=== PATIENT | male | born 1945 | race Caucasian/White ===

== ENCOUNTER 2018-01-12 14:33 | Inpatient (IN) | payer OTHER, MEDICARE ==
[~2018-01-12] VITALS: Ht 182.8 cm; Wt 113.7 kg
--- NOTE | ~2018-01-12 | CON ---
[place], [place] REPORT OF CONSULTATION NAME: TAMMI SABILLON UNIT #: [id number] ROOM: 507 DOCTOR: MARIANA ROSE ED.D) BIRTHDATE: [birth year] DOS: 01/15/2018 HISTORY OF PRESENT ILLNESS: The patient is a 72-year-old male referred by the hospitalist for competency evaluation. At the present time, he is on the fifth floor at [facility]. He states he is and has no children. He does have 1 sister living and 1 brother who last month. He does also have several nieces and nephews. He served in the [employer] for 20-1/2 years and retired. [facility] [place] [facility]. PAST MEDICAL HISTORY: Pertinent for herniated disk, hypothyroidism, diabetes mellitus type 2, hypertension and depression. His medical history also includes cardiomegaly, congestive heart failure, acute renal failure, and chronic back pain. ALLERGIES: HE IS ALLERGIC TO FLEXERIL, METFORMIN, MORPHINE AND OXYCODONE. SOCIAL HISTORY: He is 100 percent service connected from the service due to his back problems. He states that he rarely drinks alcoholic beverages and smokes one-half pack of cigarettes per day. PHYSICAL EXAMINATION: He was awake, alert and oriented in all 3 spheres. He denied any suicidal ideation or plan. His short and his snf memory appear to be intact. His insight and judgment are fair. He states he does have a friend down the road who does help him with grocery shopping and other activities of daily living, but basically resides by himself and takes care of himself. He clearly is competent to make informed healthcare decisions. DIAGNOSIS: Pervasive depressive disorder. RECOMMENDATIONS: The patient is competent to make informed healthcare decisions. Thank you very much for this consult. MARIANA ROSE ED.D CM:CONSTR:REPORT OF CONSULTATION 1029 01/16/18 0432 interface
[2018-01-12 14:43] VITALS: BP 132/70
[2018-01-12] MEDS ORDERED: PROAIR HFA8.5 GM INH (15:02)
[2018-01-12 15:30] VITALS: BP 118/64
[2018-01-12 15:58] LABS: ACT PARTIAL THROMBO TIME 30.9 SECONDS (20.8-31.5); INTERNATIONAL NORM RATIO 1.1 (2.0-3.5)
[2018-01-12 16:08] LABS: ALBUMIN 3.6 gm/dl (3.1-4.5); ALKALINE PHOSPHATASE 62 U/L (45-117); BUN 13 mg/dl (7-24); CHLORIDE 102 mmol/L (98-107); CREATININE 1.33 mg/dL (0.70-1.30); LIPASE 145 U/L (73-393); POTASSIUM 3.5 mmol/L (3.5-5.1); SGOT/AST 51 IU/L (3-35); SGPT/ALT 42 U/L (12-78); SODIUM 136 mmol/L (136-145); TOTAL PROTEIN 7.3 gm/dL (6.4-8.2)
[2018-01-12 16:10] LABS: TROPONIN I 0.015 ng/ml (<0.045)
[2018-01-12 16:24] LABS: BILIRUBIN NEGATIVE (NEGATIVE); BLOOD NEGATIVE (NEGATIVE); CLARITY CLEAR (CLEAR); COLOR YELLOW (YELLOW); GLUCOSE NEGATIVE (NEGATIVE); KETONE NEGATIVE (NEGATIVE); LEUKO ESTERASE NEGATIVE (NEGATIVE); NITRITE NEGATIVE (NEGATIVE); SPECIFIC GRAVITY 1.025 (1.005-1.030); UROBILINOGEN 0.2 E.U./dl (0.2-1.0)
[2018-01-12 16:28] VITALS: BP 118/86
[2018-01-12 16:36] LABS: BASO # 0.1 10*3/uL (0.0-0.1); BASO % 1.1 % (0.0-1.0); EOS # 0.2 10*3/uL (0.0-0.4); EOS % 2.3 % (1.0-4.0); HEMATOCRIT 41.4 % (42.0-52.0); HEMOGLOBIN 14.4 g/dl (14.0-18.0); LYMPH # 2.2 10*3/uL (1.3-4.4); LYMPH % 31.1 % (27.0-41.0); MEAN CELL VOLUME 97.2 fl (80.0-94.0); MEAN CORPUSCULAR HGB 33.8 pg (27.0-31.0); MEAN CORPUSCULAR HGB CONC 34.8 g/dl (33.0-37.0); MEAN PLATELET VOLUME 11.1 fl (9.6-12.3); MONO # 0.4 10*3/uL (0.1-1.0); MONO % 5.7 % (3.0-9.0); NEUT # 4.2 10*3/uL (2.3-7.9); NEUT % 59.7 % (47.0-73.0); PLATELET COUNT AUTOMATED 164 10*3/uL (130-400); RED BLOOD COUNT 4.26 10*6/uL (4.50-5.90); RED CELL DISTRI WIDTH 14.2 % (0-14.5)
[2018-01-12 16:48] LABS: RBC 0-2 rbc/hpf (0-2)
[2018-01-12 17:24] VITALS: BP 106/73
[2018-01-12 18:25] VITALS: BP 131/78
[2018-01-12 20:06] VITALS: BP 107/66; BP 108/66
[2018-01-13] VITALS: BP 112/72
[2018-01-13 06:36] LABS: BASO # 0.1 10*3/uL (0.0-0.1); BASO % 1.4 % (0.0-1.0); EOS # 0.2 10*3/uL (0.0-0.4); HEMATOCRIT 41.4 % (42.0-52.0); HEMOGLOBIN 13.7 g/dl (14.0-18.0); LYMPH # 2.5 10*3/uL (1.3-4.4); LYMPH % 33.6 % (27.0-41.0); MEAN CORPUSCULAR HGB 32.8 pg (27.0-31.0); MEAN CORPUSCULAR HGB CONC 33.1 g/dl (33.0-37.0); MEAN PLATELET VOLUME 11.6 fl (9.6-12.3); MONO # 0.4 10*3/uL (0.1-1.0); MONO % 5.9 % (3.0-9.0); NEUT # 4.1 10*3/uL (2.3-7.9); NEUT % 55.6 % (47.0-73.0); PLATELET COUNT AUTOMATED 168 10*3/uL (130-400); RED BLOOD COUNT 4.18 10*6/uL (4.50-5.90); RED CELL DISTRI WIDTH 14.5 % (0-14.5); WHITE BLOOD COUNT 7.4 10*3/uL (4.8-10.8)
[2018-01-13 06:56] LABS: POTASSIUM 3.6 mmol/L (3.5-5.1)
[2018-01-13 07:00] LABS: ACT PARTIAL THROMBO TIME 30.7 SECONDS (20.8-31.5); INTERNATIONAL NORM RATIO 1.1 (2.0-3.5)
[2018-01-13 07:07] LABS: ALBUMIN 3.5 gm/dl (3.1-4.5); CREATININE 1.58 mg/dL (0.70-1.30); FREE T4 0.12 ng/dl (0.76-1.46); PHOSPHOROUS 3.4 mg/dL (2.5-4.9); THYROID STIM HORMONE (HS) 89.4 uIU/ml (0.358-4.75)
[2018-01-13 07:47] LABS: VITAMIN D, 25-HYDROXY 22.3 ng/mL (30-100)
[2018-01-13 08:00] VITALS: BP 119/79
[2018-01-13 12:00] VITALS: BP 137/82
[2018-01-13] MEDS ORDERED: SYNTHROID25 MCG PO (15:45)
[2018-01-13] MEDS ORDERED: ONCE DAILY1 EACH PO (15:50)
[2018-01-13] MEDS ORDERED: ITCHY EYE5 ML OP (15:51)
[2018-01-13] MEDS ORDERED: ALLERGY RELIEF25 MG PO (15:53)
[2018-01-13] MEDS ORDERED: PROSTATE SR SO1 EACH PO (15:53)
[2018-01-13] MEDS ORDERED: OCUVEL CAPSULE1 EACH PO (15:56)
[2018-01-13 16:00] VITALS: BP 127/79
[2018-01-13 20:00] VITALS: BP 129/88
[2018-01-14] VITALS: BP 127/79
[2018-01-14 06:50] LABS: BASO # 0.1 10*3/uL (0.0-0.1); EOS # 0.2 10*3/uL (0.0-0.4); EOS % 2.9 % (1.0-4.0); HEMATOCRIT 41.6 % (42.0-52.0); HEMOGLOBIN 13.7 g/dl (14.0-18.0); LYMPH # 2.2 10*3/uL (1.3-4.4); MEAN CELL VOLUME 100.5 fl (80.0-94.0); MEAN CORPUSCULAR HGB 33.1 pg (27.0-31.0); MEAN CORPUSCULAR HGB CONC 32.9 g/dl (33.0-37.0); MEAN PLATELET VOLUME 11.2 fl (9.6-12.3); MONO # 0.5 10*3/uL (0.1-1.0); MONO % 6.1 % (3.0-9.0); NEUT # 5.2 10*3/uL (2.3-7.9); NEUT % 62.6 % (47.0-73.0); PLATELET COUNT AUTOMATED 171 10*3/uL (130-400); RED BLOOD COUNT 4.14 10*6/uL (4.50-5.90); RED CELL DISTRI WIDTH 14.6 % (0-14.5); WHITE BLOOD COUNT 8.2 10*3/uL (4.8-10.8)
[2018-01-14 07:11] LABS: ALBUMIN 3.5 gm/dl (3.1-4.5); CREATININE 1.67 mg/dL (0.70-1.30); FREE T4 0.21 ng/dl (0.76-1.46); POTASSIUM 3.7 mmol/L (3.5-5.1); TOTAL PROTEIN 7.1 gm/dL (6.4-8.2)
[2018-01-14 07:20] LABS: THYROID STIM HORMONE (HS) 98.3 uIU/ml (0.358-4.75)
[2018-01-14 08:00] VITALS: BP 104/68
[2018-01-14 12:00] VITALS: BP 112/70
[2018-01-14 16:00] VITALS: BP 110/82; BP 139/78
[2018-01-14 20:19] VITALS: BP 92/66
[2018-01-15 00:33] VITALS: BP 103/69
[2018-01-15 04:10] VITALS: BP 110/68
[2018-01-15 05:55] LABS: ALBUMIN 3.5 gm/dl (3.1-4.5); CREATININE 1.65 mg/dL (0.70-1.30); PHOSPHOROUS 3.6 mg/dL (2.5-4.9); POTASSIUM 3.9 mmol/L (3.5-5.1); TOTAL PROTEIN 7.4 gm/dL (6.4-8.2)
[2018-01-15 05:56] LABS: BASO # 0.1 10*3/uL (0.0-0.1); EOS # 0.2 10*3/uL (0.0-0.4); EOS % 2.6 % (1.0-4.0); HEMATOCRIT 41.5 % (42.0-52.0); HEMOGLOBIN 13.9 g/dl (14.0-18.0); LYMPH % 25.3 % (27.0-41.0); MEAN CELL VOLUME 98.1 fl (80.0-94.0); MEAN CORPUSCULAR HGB 32.9 pg (27.0-31.0); MEAN CORPUSCULAR HGB CONC 33.5 g/dl (33.0-37.0); MEAN PLATELET VOLUME 11.6 fl (9.6-12.3); MONO # 0.5 10*3/uL (0.1-1.0); MONO % 6.9 % (3.0-9.0); NEUT % 63.9 % (47.0-73.0); PLATELET COUNT AUTOMATED 165 10*3/uL (130-400); RED BLOOD COUNT 4.23 10*6/uL (4.50-5.90); RED CELL DISTRI WIDTH 14.3 % (0-14.5); WHITE BLOOD COUNT 7.8 10*3/uL (4.8-10.8)
[2018-01-15 08:00] VITALS: BP 126/65
[2018-01-15 12:00] VITALS: BP 121/89
[2018-01-15 16:00] VITALS: BP 117/88
[2018-01-15 20:00] VITALS: BP 126/85
[2018-01-16] VITALS: BP 110/62
[2018-01-16 05:50] LABS: BASO # 0.1 10*3/uL (0.0-0.1); BASO % 1.3 % (0.0-1.0); EOS # 0.2 10*3/uL (0.0-0.4); EOS % 3.1 % (1.0-4.0); HEMATOCRIT 42.1 % (42.0-52.0); HEMOGLOBIN 13.9 g/dl (14.0-18.0); LYMPH # 1.9 10*3/uL (1.3-4.4); MEAN CELL VOLUME 100.7 fl (80.0-94.0); MEAN CORPUSCULAR HGB 33.3 pg (27.0-31.0); MEAN PLATELET VOLUME 11.5 fl (9.6-12.3); MONO # 0.5 10*3/uL (0.1-1.0); MONO % 7.4 % (3.0-9.0); NEUT # 4.1 10*3/uL (2.3-7.9); NEUT % 59.8 % (47.0-73.0); PLATELET COUNT AUTOMATED 157 10*3/uL (130-400); RED BLOOD COUNT 4.18 10*6/uL (4.50-5.90); RED CELL DISTRI WIDTH 14.1 % (0-14.5); WHITE BLOOD COUNT 6.9 10*3/uL (4.8-10.8)
[2018-01-16 06:03] LABS: CREATININE 1.76 mg/dL (0.70-1.30); POTASSIUM 3.5 mmol/L (3.5-5.1)
[2018-01-16 08:00] VITALS: BP 94/66
[2018-01-16 16:44] VITALS: BP 139/78
[2018-01-16 20:09] VITALS: BP 128/85
[2018-01-17 00:04] VITALS: BP 105/61
[2018-01-17 07:21] LABS: BASO # 0.1 10*3/uL (0.0-0.1); EOS # 0.2 10*3/uL (0.0-0.4); HEMATOCRIT 38.7 % (42.0-52.0); HEMOGLOBIN 12.8 g/dl (14.0-18.0); LYMPH # 1.7 10*3/uL (1.3-4.4); LYMPH % 25.1 % (27.0-41.0); MEAN CORPUSCULAR HGB 33.1 pg (27.0-31.0); MEAN CORPUSCULAR HGB CONC 33.1 g/dl (33.0-37.0); MEAN PLATELET VOLUME 11.2 fl (9.6-12.3); MONO # 0.6 10*3/uL (0.1-1.0); MONO % 8.2 % (3.0-9.0); NEUT # 4.2 10*3/uL (2.3-7.9); NEUT % 62.3 % (47.0-73.0); PLATELET COUNT AUTOMATED 146 10*3/uL (130-400); RED BLOOD COUNT 3.87 10*6/uL (4.50-5.90); RED CELL DISTRI WIDTH 14.1 % (0-14.5); WHITE BLOOD COUNT 6.7 10*3/uL (4.8-10.8)
[2018-01-17 07:37] LABS: CREATININE 1.57 mg/dL (0.70-1.30); POTASSIUM 3.9 mmol/L (3.5-5.1)
[2018-01-17 08:00] VITALS: BP 125/81
[2018-01-17 16:00] VITALS: BP 108/52
[2018-01-17 20:00] VITALS: BP 107/61
[2018-01-18] VITALS: BP 102/61
[2018-01-18 04:00] VITALS: BP 115/63
[2018-01-18 08:00] VITALS: BP 124/91
[2018-01-18 16:00] VITALS: BP 132/72
[2018-01-18 20:03] VITALS: BP 101/66
[2018-01-19] VITALS: BP 125/79
[2018-01-19 06:56] LABS: BASO # 0.1 10*3/uL (0.0-0.1); BASO % 1.2 % (0.0-1.0); EOS # 0.2 10*3/uL (0.0-0.4); EOS % 3.4 % (1.0-4.0); HEMATOCRIT 40.3 % (42.0-52.0); HEMOGLOBIN 13.4 g/dl (14.0-18.0); LYMPH # 1.9 10*3/uL (1.3-4.4); LYMPH % 28.2 % (27.0-41.0); MEAN CELL VOLUME 98.5 fl (80.0-94.0); MEAN CORPUSCULAR HGB 32.8 pg (27.0-31.0); MEAN CORPUSCULAR HGB CONC 33.3 g/dl (33.0-37.0); MEAN PLATELET VOLUME 11.2 fl (9.6-12.3); MONO # 0.5 10*3/uL (0.1-1.0); MONO % 6.9 % (3.0-9.0); PLATELET COUNT AUTOMATED 150 10*3/uL (130-400); RED BLOOD COUNT 4.09 10*6/uL (4.50-5.90); WHITE BLOOD COUNT 6.7 10*3/uL (4.8-10.8)
[2018-01-19 07:06] LABS: ALBUMIN 3.5 gm/dl (3.1-4.5); ALKALINE PHOSPHATASE 80 U/L (45-117); BUN 20 mg/dl (7-24); CHLORIDE 101 mmol/L (98-107); CREATININE 1.37 mg/dL (0.70-1.30); POTASSIUM 3.9 mmol/L (3.5-5.1); SGOT/AST 42 IU/L (3-35); SGPT/ALT 45 U/L (12-78); SODIUM 136 mmol/L (136-145); TOTAL PROTEIN 7.4 gm/dL (6.4-8.2)
[2018-01-19 08:00] VITALS: BP 108/72
[2018-01-19] MEDS ORDERED: ASPIRIN ADULT L81 M2 PO (08:28)
[2018-01-19] MEDS ORDERED: ATORVASTATIN CA40 M1 PO (08:28)
[2018-01-19] MEDS ORDERED: METOPROLOL SUCC25 M2 PO (08:28)
[2018-01-19] MEDS ORDERED: VITAMIN D-32000 UNIT PO (08:29)
[2018-01-19] MEDS ORDERED: GLIPIZIDE5 MG PO (08:29)
[2018-01-19] MEDS ORDERED: BUMETANIDE1 MG PO (08:38)
== END 2018-01-19 11:17 | disposition home health service (06) | DRG 291 ==
LOC: ED 14:33 → EDHOLD 17:05 → 5E 17:05 → EDHOLD 17:46 → 5E 17:48
PROVIDERS: Internal Medicine; Physician Assistant; Registered Nurse
DX: I13.0 Hypertensive heart and chronic kidney disease with heart failure and stage 1 through stage 4 chronic kidney disease, or unspecified chronic kidney disease (principal); N17.0 Acute kidney failure with tubular necrosis; G93.41 Metabolic encephalopathy; I50.31 Acute diastolic (congestive) heart failure; E03.9 Hypothyroidism, unspecified; R74.0 Nonspecific elevation of levels of transaminase and lactic acid dehydrogenase [LDH]; E11.22 Type 2 diabetes mellitus with diabetic chronic kidney disease; N18.3 Chronic kidney disease, stage 3 (moderate); E11.65 Type 2 diabetes mellitus with hyperglycemia; M54.9 Dorsalgia, unspecified; G89.29 Other chronic pain; E66.9 Obesity, unspecified; F32.9 Major depressive disorder, single episode, unspecified; F17.210 Nicotine dependence, cigarettes, uncomplicated; M25.562 Pain in left knee; M50.20 Other cervical disc displacement, unspecified cervical region; H26.9 Unspecified cataract; N32.81 Overactive bladder; E55.9 Vitamin D deficiency, unspecified; E78.5 Hyperlipidemia, unspecified; Z91.19 Patient's noncompliance with other medical treatment and regimen; Z91.81 History of falling; Z88.5 Allergy status to narcotic agent; Z88.8 Allergy status to other drugs, medicaments and biological substances; Z88.6 Allergy status to analgesic agent; Z91.012 Allergy to eggs; Z79.899 Other long term (current) drug therapy; Z68.34 Body mass index [BMI] 34.0-34.9, adult

== ENCOUNTER 2020-10-31 12:36 | Inpatient (IN) | payer OTHER, MEDICARE ==
[2020-10-31] VITALS (9 sets, daily range): BP systolic 92–117; BP diastolic 60–73
[~2020-10-31] VITALS: Ht 182.8 cm; Wt 113.0 kg
[~2020-10-31 12:36] MED LIST: ALLERGY RELIEF25 MG PO; ASPIRIN ADULT L81 M2 PO; ATORVASTATIN CA40 M1 PO; BUMETANIDE1 MG PO; GLIPIZIDE5 MG PO; ITCHY EYE5 ML OP; METOPROLOL SUCC25 M2 PO; OCUVEL CAPSULE1 EACH PO; ONCE DAILY1 EACH PO; PROAIR HFA8.5 GM INH; PROSTATE SR SO1 EACH PO; SYNTHROID25 MCG PO; VITAMIN D-32000 UNIT PO
[2020-10-31 12:55] LABS: HEMATOCRIT 39.4 % (42.0-52.0); MEAN CELL VOLUME 90.4 fl (80.0-94.0); MEAN CORPUSCULAR HGB 29.4 pg (27.0-31.0); MEAN CORPUSCULAR HGB CONC 32.5 g/dl (33.0-37.0); MEAN PLATELET VOLUME 9.7 fl (9.6-12.3); PLATELET COUNT AUTOMATED 325 10*3/uL (130-400); RED BLOOD COUNT 4.36 10*6/uL (4.50-5.90); WHITE BLOOD COUNT 6.4 10*3/uL (4.8-10.8)
[2020-10-31 13:06] LABS: ACT PARTIAL THROMBO TIME 30.6 SECONDS (20.0-32.1); INTERNATIONAL NORM RATIO 1.1 (2.0-3.5)
[2020-10-31 13:15] LABS: ALBUMIN 3.2 gm/dl (3.1-4.5); ALKALINE PHOSPHATASE 48 U/L (45-117); BUN 23 mg/dl (7-24); CHLORIDE 104 mmol/L (98-107); CREATININE 1.95 mg/dL (0.70-1.30); POTASSIUM 3.8 mmol/L (3.5-5.1); SGOT/AST 22 IU/L (3-35); SGPT/ALT 16 U/L (12-78); SODIUM 138 mmol/L (136-145); TOTAL PROTEIN 7.9 gm/dL (6.4-8.2)
[2020-10-31 13:17] LABS: BURR CELLS FEW; PLATELET SUFFICIENCY NORMAL (NORMAL); TOTAL CELLS COUNTED 100 #CELLS; TOXIC GRANULATION SLIGHT; VACUOLATION OF NEUTROPHILS SLIGHT
[2020-10-31 13:21] LABS: TROPONIN I < 0.015 ng/ml (<0.045)
[2020-10-31 20:22] LABS: ABG BASE EXCESS 0.9 mmol/L (-2.0-2.0); ARTERIAL BLOOD GAS PH 7.458 (7.35-7.45); ARTERIAL BLOOD GAS PO2 68.5 (80-90)
[2020-10-31] MEDS ORDERED: TAMSULOSIN HCL0.4 MG PO (23:24)
[2020-10-31] MEDS ORDERED: HYDROCHLOROTH12.5 M3 PO (23:25)
[2020-10-31] MEDS ORDERED: SYNTHROID,LEVO88 MCG PO (23:29)
[2020-11-01 06:35] LABS: HEMATOCRIT 34.9 % (42.0-52.0); MEAN CELL VOLUME 90.9 fl (80.0-94.0); MEAN CORPUSCULAR HGB 29.4 pg (27.0-31.0); MEAN CORPUSCULAR HGB CONC 32.4 g/dl (33.0-37.0); MEAN PLATELET VOLUME 10.4 fl (9.6-12.3); PLATELET COUNT AUTOMATED 289 10*3/uL (130-400); RED BLOOD COUNT 3.84 10*6/uL (4.50-5.90); WHITE BLOOD COUNT 6.1 10*3/uL (4.8-10.8)
[2020-11-01 06:52] LABS: POTASSIUM 3.2 mmol/L (3.5-5.1)
[2020-11-01 07:06] LABS: ALBUMIN 2.8 gm/dl (3.1-4.5); CREATININE 1.64 mg/dL (0.70-1.30); FREE T4 0.29 ng/dl (0.76-1.46); TOTAL PROTEIN 7.2 gm/dL (6.4-8.2)
[2020-11-01 07:16] LABS: THYROID STIM HORMONE (HS) 46.1 uIU/ml (0.358-4.75)
[2020-11-01 07:43] LABS: PLATELET SUFFICIENCY NORMAL (NORMAL); TOTAL CELLS COUNTED 100 #CELLS
[2020-11-01 08:00] VITALS: BP 104/63
[2020-11-01 12:00] VITALS: BP 109/62
[2020-11-01 14:12] LABS: BILIRUBIN Negative (Negative); BLOOD 1+ (Negative); CLARITY Clear (Clear); COLOR Yellow (Yellow); GLUCOSE Negative (Negative); KETONE Negative (Negative); LEUKO ESTERASE Trace (Negative); NITRITE Negative (Negative); PH 5.5 (4.5-8.0); UROBILINOGEN 0.2 E.U./dl (0.0-1.0)
[2020-11-01 16:00] VITALS: BP 115/89
[2020-11-01 20:00] VITALS: BP 109/65
[2020-11-02] VITALS: BP 106/60
[2020-11-02 06:15] LABS: ALBUMIN 2.7 gm/dl (3.1-4.5); CREATININE 1.44 mg/dL (0.70-1.30)
[2020-11-02 06:16] LABS: TOTAL PROTEIN 6.9 gm/dL (6.4-8.2)
[2020-11-02 06:18] LABS: HEMATOCRIT 33.8 % (42.0-52.0); MEAN CELL VOLUME 92.6 fl (80.0-94.0); MEAN CORPUSCULAR HGB 29.3 pg (27.0-31.0); MEAN CORPUSCULAR HGB CONC 31.7 g/dl (33.0-37.0); MEAN PLATELET VOLUME 10.5 fl (9.6-12.3); PLATELET COUNT AUTOMATED 250 10*3/uL (130-400); RED BLOOD COUNT 3.65 10*6/uL (4.50-5.90); RED CELL DISTRI WIDTH 17.7 % (0-14.5); WHITE BLOOD COUNT 7.8 10*3/uL (4.8-10.8)
[2020-11-02 07:09] LABS: TOTAL CELLS COUNTED 100 #CELLS
[2020-11-02 07:10] LABS: BURR CELLS FEW; OVALOCYTES FEW; PLATELET SUFFICIENCY NORMAL (NORMAL); SCHISTOCYTES FEW
[2020-11-02 08:00] VITALS: BP 116/58
[2020-11-02 12:00] VITALS: BP 119/63
[2020-11-02 16:00] VITALS: BP 162/70
[2020-11-02 20:00] VITALS: BP 118/67
[2020-11-03] VITALS: BP 99/65
[2020-11-03 06:37] LABS: BASO % 0.6 % (0.0-1.0); EOS # 0.1 10*3/uL (0.0-0.4); HEMATOCRIT 31.5 % (42.0-52.0); LYMPH # 1.1 10*3/uL (1.3-4.4); LYMPH % 16.2 % (27.0-41.0); MEAN CELL VOLUME 92.1 fl (80.0-94.0); MEAN CORPUSCULAR HGB 29.2 pg (27.0-31.0); MEAN CORPUSCULAR HGB CONC 31.7 g/dl (33.0-37.0); MEAN PLATELET VOLUME 10.3 fl (9.6-12.3); MONO # 0.4 10*3/uL (0.1-1.0); MONO % 6.2 % (3.0-9.0); NEUT # 4.8 10*3/uL (2.3-7.9); NEUT % 74.4 % (47.0-73.0); PLATELET COUNT AUTOMATED 248 10*3/uL (130-400); RED BLOOD COUNT 3.42 10*6/uL (4.50-5.90); RED CELL DISTRI WIDTH 17.6 % (0-14.5); WHITE BLOOD COUNT 6.5 10*3/uL (4.8-10.8)
[2020-11-03 06:55] LABS: ALBUMIN 2.6 gm/dl (3.1-4.5); BUN 16 mg/dl (7-24); CHLORIDE 102 mmol/L (98-107); CREATININE 1.17 mg/dL (0.70-1.30); POTASSIUM 3.1 mmol/L (3.5-5.1); SGOT/AST 24 IU/L (3-35); SGPT/ALT 15 U/L (12-78); SODIUM 135 mmol/L (136-145); TOTAL PROTEIN 6.4 gm/dL (6.4-8.2)
[2020-11-03 06:56] LABS: ALKALINE PHOSPHATASE 43 U/L (45-117)
[2020-11-03 08:00] VITALS: BP 105/68; BP 124/63
[2020-11-03 12:00] VITALS: BP 106/68
[2020-11-03 16:00] VITALS: BP 133/82
[2020-11-03 20:00] VITALS: BP 124/63
[2020-11-04] VITALS (10 sets, daily range): BP systolic 88–132; BP diastolic 50–79
[2020-11-04 06:28] LABS: BASO # 0.1 10*3/uL (0.0-0.1); EOS # 0.2 10*3/uL (0.0-0.4); EOS % 2.9 % (1.0-4.0); HEMATOCRIT 34.6 % (42.0-52.0); LYMPH # 1.1 10*3/uL (1.3-4.4); LYMPH % 18.1 % (27.0-41.0); MEAN CELL VOLUME 92.5 fl (80.0-94.0); MEAN CORPUSCULAR HGB 29.1 pg (27.0-31.0); MEAN CORPUSCULAR HGB CONC 31.5 g/dl (33.0-37.0); MEAN PLATELET VOLUME 10.1 fl (9.6-12.3); MONO # 0.5 10*3/uL (0.1-1.0); MONO % 7.6 % (3.0-9.0); NEUT # 4.1 10*3/uL (2.3-7.9); NEUT % 69.2 % (47.0-73.0); PLATELET COUNT AUTOMATED 262 10*3/uL (130-400); RED BLOOD COUNT 3.74 10*6/uL (4.50-5.90); RED CELL DISTRI WIDTH 17.6 % (0-14.5); WHITE BLOOD COUNT 5.9 10*3/uL (4.8-10.8)
[2020-11-04 06:46] LABS: ALBUMIN 2.7 gm/dl (3.1-4.5); ALKALINE PHOSPHATASE 45 U/L (45-117); BUN 11 mg/dl (7-24); CHLORIDE 104 mmol/L (98-107); CREATININE 1.19 mg/dL (0.70-1.30); POTASSIUM 3.1 mmol/L (3.5-5.1); SGOT/AST 25 IU/L (3-35); SGPT/ALT 15 U/L (12-78); SODIUM 137 mmol/L (136-145); TOTAL PROTEIN 6.5 gm/dL (6.4-8.2)
[2020-11-05] VITALS (9 sets, daily range): BP systolic 88–132; BP diastolic 54–86
[2020-11-06] VITALS: BP 120/71
[2020-11-06 08:00] VITALS: BP 108/66
[2020-11-06 12:00] VITALS: BP 125/64
[2020-11-06 16:00] VITALS: BP 127/65
[2020-11-06 20:00] VITALS: BP 128/77
[2020-11-07] VITALS: BP 123/67
[2020-11-07 06:52] LABS: BASO % 0.6 % (0.0-1.0); EOS # 0.3 10*3/uL (0.0-0.4); EOS % 4.1 % (1.0-4.0); HEMATOCRIT 35.1 % (42.0-52.0); LYMPH # 1.2 10*3/uL (1.3-4.4); LYMPH % 18.1 % (27.0-41.0); MEAN CELL VOLUME 93.6 fl (80.0-94.0); MEAN CORPUSCULAR HGB 29.1 pg (27.0-31.0); MEAN CORPUSCULAR HGB CONC 31.1 g/dl (33.0-37.0); MEAN PLATELET VOLUME 10.2 fl (9.6-12.3); MONO # 0.7 10*3/uL (0.1-1.0); MONO % 10.9 % (3.0-9.0); NEUT # 4.3 10*3/uL (2.3-7.9); PLATELET COUNT AUTOMATED 265 10*3/uL (130-400); RED BLOOD COUNT 3.75 10*6/uL (4.50-5.90); RED CELL DISTRI WIDTH 17.8 % (0-14.5); WHITE BLOOD COUNT 6.6 10*3/uL (4.8-10.8)
[2020-11-07 07:16] LABS: BUN 7 mg/dl (7-24); CHLORIDE 103 mmol/L (98-107); CREATININE 1.23 mg/dL (0.70-1.30); POTASSIUM 3.3 mmol/L (3.5-5.1); SODIUM 137 mmol/L (136-145)
[2020-11-07 08:00] VITALS: BP 112/70
[2020-11-07 12:00] VITALS: BP 122/74
[2020-11-07 16:00] VITALS: BP 117/75
[2020-11-07 20:00] VITALS: BP 113/62
[2020-11-08] VITALS (7 sets, daily range): BP systolic 98–141; BP diastolic 59–87
[2020-11-08 06:20] LABS: BASO # 0.1 10*3/uL (0.0-0.1); BASO % 0.7 % (0.0-1.0); EOS # 0.2 10*3/uL (0.0-0.4); EOS % 2.7 % (1.0-4.0); HEMATOCRIT 33.1 % (42.0-52.0); LYMPH # 1.4 10*3/uL (1.3-4.4); LYMPH % 19.2 % (27.0-41.0); MEAN CELL VOLUME 92.2 fl (80.0-94.0); MEAN CORPUSCULAR HGB 29.5 pg (27.0-31.0); MEAN PLATELET VOLUME 9.7 fl (9.6-12.3); MONO # 0.7 10*3/uL (0.1-1.0); MONO % 10.3 % (3.0-9.0); NEUT # 4.6 10*3/uL (2.3-7.9); NEUT % 65.1 % (47.0-73.0); PLATELET COUNT AUTOMATED 258 10*3/uL (130-400); RED BLOOD COUNT 3.59 10*6/uL (4.50-5.90); RED CELL DISTRI WIDTH 17.8 % (0-14.5); WHITE BLOOD COUNT 7.1 10*3/uL (4.8-10.8)
[2020-11-08 06:32] LABS: ALBUMIN 2.5 gm/dl (3.1-4.5); ALKALINE PHOSPHATASE 57 U/L (45-117); BUN 9 mg/dl (7-24); CHLORIDE 102 mmol/L (98-107); CREATININE 1.25 mg/dL (0.70-1.30); POTASSIUM 3.7 mmol/L (3.5-5.1); SGOT/AST 20 IU/L (3-35); SGPT/ALT 16 U/L (12-78); SODIUM 138 mmol/L (136-145); TOTAL PROTEIN 6.5 gm/dL (6.4-8.2)
[2020-11-08 12:35] LABS: ABG BASE EXCESS 0.3 mmol/L (-2.0-2.0); ARTERIAL BLOOD GAS PH 7.407 (7.35-7.45); ARTERIAL BLOOD GAS PO2 69.5 (80-90)
[2020-11-09] VITALS (8 sets, daily range): BP systolic 98–138; BP diastolic 56–80
[2020-11-09 06:22] LABS: HEMATOCRIT 33.6 % (42.0-52.0); MEAN CELL VOLUME 90.1 fl (80.0-94.0); MEAN CORPUSCULAR HGB 29.8 pg (27.0-31.0); MEAN PLATELET VOLUME 11.2 fl (9.6-12.3); PLATELET COUNT AUTOMATED 273 10*3/uL (130-400); RED BLOOD COUNT 3.73 10*6/uL (4.50-5.90); RED CELL DISTRI WIDTH 17.9 % (0-14.5); WHITE BLOOD COUNT 21.2 10*3/uL (4.8-10.8)
[2020-11-09 06:23] LABS: BUN 10 mg/dl (7-24); CHLORIDE 106 mmol/L (98-107); CREATININE 1.36 mg/dL (0.70-1.30); POTASSIUM 4.2 mmol/L (3.5-5.1); SODIUM 136 mmol/L (136-145)
[2020-11-09 07:42] LABS: BURR CELLS FEW; OVALOCYTES FEW; PLATELET SUFFICIENCY NORMAL (NORMAL); TOTAL CELLS COUNTED 100 #CELLS
[2020-11-09 08:12] LABS: ARTERIAL BLOOD GAS PH 7.368 (7.35-7.45); ARTERIAL BLOOD GAS PO2 87.2 (80-90)
[2020-11-10] VITALS: BP 109/64
[2020-11-10 04:00] VITALS: BP 119/73
[2020-11-10 06:04] LABS: ALBUMIN 2.6 gm/dl (3.1-4.5); BUN 12 mg/dl (7-24); CHLORIDE 104 mmol/L (98-107); POTASSIUM 3.9 mmol/L (3.5-5.1); SODIUM 137 mmol/L (136-145)
[2020-11-10 06:08] LABS: ALKALINE PHOSPHATASE 50 U/L (45-117); CREATININE 1.17 mg/dL (0.70-1.30); SGOT/AST 18 IU/L (3-35); SGPT/ALT 13 U/L (12-78); TOTAL PROTEIN 6.2 gm/dL (6.4-8.2)
[2020-11-10 06:25] LABS: BASO % 0.2 % (0.0-1.0); EOS # 0.1 10*3/uL (0.0-0.4); LYMPH # 1.1 10*3/uL (1.3-4.4); LYMPH % 8.9 % (27.0-41.0); MEAN CORPUSCULAR HGB 29.6 pg (27.0-31.0); MEAN CORPUSCULAR HGB CONC 31.7 g/dl (33.0-37.0); MEAN PLATELET VOLUME 10.2 fl (9.6-12.3); MONO # 0.6 10*3/uL (0.1-1.0); MONO % 4.8 % (3.0-9.0); NEUT # 10.2 10*3/uL (2.3-7.9); NEUT % 84.2 % (47.0-73.0); PLATELET COUNT AUTOMATED 258 10*3/uL (130-400); RED BLOOD COUNT 3.11 10*6/uL (4.50-5.90); RED CELL DISTRI WIDTH 18.4 % (0-14.5); WHITE BLOOD COUNT 12.2 10*3/uL (4.8-10.8)
[2020-11-10 06:26] LABS: MEAN CELL VOLUME 93.2 fl (80.0-94.0)
[2020-11-10 08:00] VITALS: BP 143/80
[2020-11-10 12:00] VITALS: BP 140/90
[2020-11-10 16:00] VITALS: BP 109/73
[2020-11-10 20:00] VITALS: BP 104/56
[2020-11-11] VITALS: BP 105/60
[2020-11-11 04:00] VITALS: BP 112/61
[2020-11-11 06:08] LABS: BASO % 0.4 % (0.0-1.0); EOS # 0.1 10*3/uL (0.0-0.4); EOS % 1.5 % (1.0-4.0); LYMPH # 1.6 10*3/uL (1.3-4.4); LYMPH % 16.7 % (27.0-41.0); MEAN CELL VOLUME 94.3 fl (80.0-94.0); MEAN CORPUSCULAR HGB 29.3 pg (27.0-31.0); MEAN CORPUSCULAR HGB CONC 31.1 g/dl (33.0-37.0); MEAN PLATELET VOLUME 9.9 fl (9.6-12.3); MONO # 0.5 10*3/uL (0.1-1.0); MONO % 5.2 % (3.0-9.0); NEUT # 7.1 10*3/uL (2.3-7.9); NEUT % 75.7 % (47.0-73.0); PLATELET COUNT AUTOMATED 226 10*3/uL (130-400); RED BLOOD COUNT 2.97 10*6/uL (4.50-5.90); RED CELL DISTRI WIDTH 18.1 % (0-14.5); WHITE BLOOD COUNT 9.4 10*3/uL (4.8-10.8)
[2020-11-11 06:11] LABS: BUN 11 mg/dl (7-24); CHLORIDE 103 mmol/L (98-107); CREATININE 1.03 mg/dL (0.70-1.30); POTASSIUM 3.8 mmol/L (3.5-5.1); SODIUM 137 mmol/L (136-145)
[2020-11-11 08:00] VITALS: BP 120/60
[2020-11-11 12:00] VITALS: BP 104/58
[2020-11-11 16:00] VITALS: BP 111/76
[2020-11-11 20:00] VITALS: BP 134/74
[2020-11-12] VITALS: BP 120/68
[2020-11-12 04:00] VITALS: BP 113/74
[2020-11-12 04:47] LABS: BASO % 0.5 % (0.0-1.0); EOS # 0.2 10*3/uL (0.0-0.4); EOS % 1.8 % (1.0-4.0); HEMATOCRIT 28.3 % (42.0-52.0); LYMPH # 1.2 10*3/uL (1.3-4.4); LYMPH % 14.7 % (27.0-41.0); MEAN CELL VOLUME 92.5 fl (80.0-94.0); MEAN CORPUSCULAR HGB 29.7 pg (27.0-31.0); MEAN CORPUSCULAR HGB CONC 32.2 g/dl (33.0-37.0); MEAN PLATELET VOLUME 9.6 fl (9.6-12.3); MONO # 0.4 10*3/uL (0.1-1.0); MONO % 4.6 % (3.0-9.0); NEUT # 6.6 10*3/uL (2.3-7.9); PLATELET COUNT AUTOMATED 234 10*3/uL (130-400); RED BLOOD COUNT 3.06 10*6/uL (4.50-5.90); RED CELL DISTRI WIDTH 17.6 % (0-14.5); WHITE BLOOD COUNT 8.4 10*3/uL (4.8-10.8)
[2020-11-12 05:26] LABS: ALBUMIN 2.4 gm/dl (3.1-4.5); ALKALINE PHOSPHATASE 57 U/L (45-117); BUN 11 mg/dl (7-24); CHLORIDE 101 mmol/L (98-107); SGOT/AST 34 IU/L (3-35); SGPT/ALT 22 U/L (12-78); SODIUM 134 mmol/L (136-145)
[2020-11-12 08:00] VITALS: BP 119/70
[2020-11-12 12:00] VITALS: BP 118/61
[2020-11-12 16:00] VITALS: BP 120/64
[2020-11-12 20:00] VITALS: BP 128/69
[2020-11-13] VITALS: BP 126/73
[2020-11-13 02:08] LABS: ABG BASE EXCESS 8.9 mmol/L (-2.0-2.0); ARTERIAL BLOOD GAS PH 7.437 (7.35-7.45); ARTERIAL BLOOD GAS PO2 78.7 (80-90)
[2020-11-13 05:58] LABS: BUN 13 mg/dl (7-24); CHLORIDE 101 mmol/L (98-107); CREATININE 1.09 mg/dL (0.70-1.30); POTASSIUM 3.8 mmol/L (3.5-5.1); SODIUM 137 mmol/L (136-145)
[2020-11-13 06:17] LABS: BASO % 0.5 % (0.0-1.0); EOS # 0.2 10*3/uL (0.0-0.4); EOS % 2.5 % (1.0-4.0); HEMATOCRIT 28.3 % (42.0-52.0); LYMPH # 1.2 10*3/uL (1.3-4.4); LYMPH % 19.3 % (27.0-41.0); MEAN CELL VOLUME 93.1 fl (80.0-94.0); MEAN CORPUSCULAR HGB 29.3 pg (27.0-31.0); MEAN CORPUSCULAR HGB CONC 31.4 g/dl (33.0-37.0); MEAN PLATELET VOLUME 10.1 fl (9.6-12.3); MONO # 0.4 10*3/uL (0.1-1.0); MONO % 5.9 % (3.0-9.0); NEUT # 4.6 10*3/uL (2.3-7.9); NEUT % 71.3 % (47.0-73.0); PLATELET COUNT AUTOMATED 240 10*3/uL (130-400); RED BLOOD COUNT 3.04 10*6/uL (4.50-5.90); RED CELL DISTRI WIDTH 17.6 % (0-14.5); WHITE BLOOD COUNT 6.4 10*3/uL (4.8-10.8)
[2020-11-13 08:00] VITALS: BP 142/86
[2020-11-13 11:51] VITALS: BP 138/72
[2020-11-13 16:13] VITALS: BP 148/83
[2020-11-13 20:00] VITALS: BP 154/83
[2020-11-14] VITALS: BP 120/62
[2020-11-14 06:14] LABS: BASO % 0.8 % (0.0-1.0); EOS # 0.2 10*3/uL (0.0-0.4); EOS % 3.2 % (1.0-4.0); HEMATOCRIT 29.4 % (42.0-52.0); LYMPH # 1.1 10*3/uL (1.3-4.4); LYMPH % 21.7 % (27.0-41.0); MEAN CELL VOLUME 92.5 fl (80.0-94.0); MEAN CORPUSCULAR HGB 29.6 pg (27.0-31.0); MEAN PLATELET VOLUME 9.9 fl (9.6-12.3); MONO # 0.3 10*3/uL (0.1-1.0); MONO % 6.3 % (3.0-9.0); NEUT # 3.5 10*3/uL (2.3-7.9); NEUT % 67.4 % (47.0-73.0); PLATELET COUNT AUTOMATED 256 10*3/uL (130-400); RED BLOOD COUNT 3.18 10*6/uL (4.50-5.90); RED CELL DISTRI WIDTH 17.4 % (0-14.5); WHITE BLOOD COUNT 5.3 10*3/uL (4.8-10.8)
[2020-11-14 06:33] LABS: BUN 9 mg/dl (7-24); CHLORIDE 100 mmol/L (98-107); CREATININE 0.89 mg/dL (0.70-1.30); POTASSIUM 3.8 mmol/L (3.5-5.1); SODIUM 136 mmol/L (136-145)
[2020-11-14 08:00] VITALS: BP 126/64
[2020-11-14 12:00] VITALS: BP 117/63
[2020-11-14 16:00] VITALS: BP 111/69
[2020-11-14 20:00] VITALS: BP 120/72
[2020-11-15] VITALS: BP 127/73
[2020-11-15 06:03] LABS: BUN 7 mg/dl (7-24); CHLORIDE 101 mmol/L (98-107); CREATININE 0.95 mg/dL (0.70-1.30); POTASSIUM 3.8 mmol/L (3.5-5.1); SODIUM 137 mmol/L (136-145)
[2020-11-15 06:27] LABS: BASO % 0.7 % (0.0-1.0); EOS # 0.2 10*3/uL (0.0-0.4); EOS % 3.2 % (1.0-4.0); HEMATOCRIT 30.2 % (42.0-52.0); LYMPH # 1.4 10*3/uL (1.3-4.4); LYMPH % 25.6 % (27.0-41.0); MEAN CELL VOLUME 92.6 fl (80.0-94.0); MEAN CORPUSCULAR HGB 29.1 pg (27.0-31.0); MEAN CORPUSCULAR HGB CONC 31.5 g/dl (33.0-37.0); MONO # 0.4 10*3/uL (0.1-1.0); MONO % 7.1 % (3.0-9.0); NEUT # 3.4 10*3/uL (2.3-7.9); PLATELET COUNT AUTOMATED 290 10*3/uL (130-400); RED BLOOD COUNT 3.26 10*6/uL (4.50-5.90); RED CELL DISTRI WIDTH 17.5 % (0-14.5); WHITE BLOOD COUNT 5.4 10*3/uL (4.8-10.8)
[2020-11-15 08:00] VITALS: BP 114/76
[2020-11-15 12:00] VITALS: BP 137/56
[2020-11-15] MEDS ORDERED: GUAIFENESI100 MG/51 PO (15:13)
[2020-11-15] MEDS ORDERED: DELZICOL400 M2 PO (15:13)
[2020-11-15] MEDS ORDERED: ARTHRITIS PAIN650 MG PO (15:13)
[2020-11-15] MEDS ORDERED: REGLAN10 M1 PO (15:13)
[2020-11-15] MEDS ORDERED: FLUCONAZOLE100 MG PO (15:13)
[2020-11-15 16:00] VITALS: BP 148/90
== END 2020-11-15 18:59 | DRG 329 ==
LOC: ED 12:36 → 4E 18:28 → EDHOLD 18:28 → 5E 18:28 → ICCU 18:28 → 5E 22:06 → ICCU 11-08 10:10 → 4E 11-12 14:19
PROVIDERS: Internal Medicine; Social Worker Clinical; Student in an Organized Health Care Education/Training Program; ADMIT Internal Medicine; ATTEND Internal Medicine
PROC: 0DJD8ZZ Inspection of Lower Intestinal Tract, Via Natural or Artificial Opening Endoscopic (ICD-10-PCS; principal; 2020-11-04)
PROC: 0DJD8ZZ Inspection of Lower Intestinal Tract, Via Natural or Artificial Opening Endoscopic (ICD-10-PCS; 2020-11-05)
PROC: 0D1N0Z4 Bypass Sigmoid Colon to Cutaneous, Open Approach (ICD-10-PCS; 2020-11-08)
PROC: 0WQF0ZZ Repair Abdominal Wall, Open Approach (ICD-10-PCS; 2020-11-08)
PROC: 0DBP0ZZ Excision of Rectum, Open Approach (ICD-10-PCS; 2020-11-08)
PROC: 5A1935Z Respiratory Ventilation, Less than 24 Consecutive Hours (ICD-10-PCS; 2020-11-08)
PROC: 0BH17EZ Insertion of Endotracheal Airway into Trachea, Via Natural or Artificial Opening (ICD-10-PCS; 2020-11-08)
DX: K56.600 Partial intestinal obstruction, unspecified as to cause (principal); J69.0 Pneumonitis due to inhalation of food and vomit; J96.01 Acute respiratory failure with hypoxia; G93.41 Metabolic encephalopathy; N17.0 Acute kidney failure with tubular necrosis; I31.3 Pericardial effusion (noninflammatory); K52.9 Noninfective gastroenteritis and colitis, unspecified; N18.32 Chronic kidney disease, stage 3b; M48.00 Spinal stenosis, site unspecified; N28.1 Cyst of kidney, acquired; K80.20 Calculus of gallbladder without cholecystitis without obstruction; E83.41 Hypermagnesemia; K42.9 Umbilical hernia without obstruction or gangrene; K40.20 Bilateral inguinal hernia, without obstruction or gangrene, not specified as recurrent; N20.0 Calculus of kidney; E03.9 Hypothyroidism, unspecified; E66.9 Obesity, unspecified; Z20.822 Contact with and (suspected) exposure to COVID-19; I48.91 Unspecified atrial fibrillation; I12.9 Hypertensive chronic kidney disease with stage 1 through stage 4 chronic kidney disease, or unspecified chronic kidney disease; E11.22 Type 2 diabetes mellitus with diabetic chronic kidney disease; K59.00 Constipation, unspecified; G89.29 Other chronic pain; M54.9 Dorsalgia, unspecified; D64.9 Anemia, unspecified; E80.6 Other disorders of bilirubin metabolism; Z88.8 Allergy status to other drugs, medicaments and biological substances; Z88.6 Allergy status to analgesic agent; Z91.012 Allergy to eggs; Z98.42 Cataract extraction status, left eye; Z98.41 Cataract extraction status, right eye; Z93.3 Colostomy status; Z68.33 Body mass index [BMI] 33.0-33.9, adult